=== PATIENT | male | born 1955 | race Caucasian/White ===

== ENCOUNTER 2019-04-23 08:22 | Outpatient (CLI) | payer MEDICARE ==
--- NOTE | 2019-04-23 10:31 | RAD ---
RIGHT HIP 2 VIEWS: Date: 04/23/19 HISTORY: Right hip pain. FINDINGS/IMPRESSION: Numerous surgical clips in the pelvis. Mild degenerative changes right hip joint and mild enthesophyt ic changes. No fracture or dislocation. POS: [facility]
--- NOTE | 2019-04-23 10:34 | RAD ---
AP PELVIS 1 VIEW: Date: 04/23/19 HISTORY: Right hip pain. FINDINGS/IMPRESSION: Surgical clips in the pelvis. Mild degenerative changes of both hip joints. No fracture, dislocation, or other significant acute osseous abnormality. POS: [facility]
== END 2019-04-23 08:23 | disposition home or self-care (01) ==
LOC: MADRAD 08:22
PROVIDERS: ATTEND General Practice
DX: M25.551 Pain in right hip (principal); M16.0 Bilateral primary osteoarthritis of hip; Z98.890 Other specified postprocedural states
CPT/HCPCS: 72170

== ENCOUNTER 2021-10-30 09:29 | Outpatient (CLI) | payer MEDICARE | END 2021-10-30 09:30 | disposition home or self-care (01) | LOC: MADRAD 09:29 | PROVIDERS: ATTEND Nurse Practitioner Family | DX: R22.1 Localized swelling, mass and lump, neck (principal) | CPT/HCPCS: 71046 ==

== ENCOUNTER 2022-10-25 14:25 | Outpatient (CLI) | payer MEDICARE | END 2022-10-25 14:26 | disposition home or self-care (01) | LOC: MADRAD 14:25 | PROVIDERS: ATTEND Nurse Practitioner Family | DX: L04.0 Acute lymphadenitis of face, head and neck (principal); R05.9 Cough, unspecified; J32.9 Chronic sinusitis, unspecified | CPT/HCPCS: 71046 ==

== ENCOUNTER 2022-11-03 08:40 | Outpatient (CLI) | payer MEDICARE | END 2022-11-03 08:41 | disposition home or self-care (01) | LOC: MADULT 08:40 | PROVIDERS: ATTEND Nurse Practitioner Family | DX: L04.0 Acute lymphadenitis of face, head and neck (principal) | CPT/HCPCS: 76999 ==

== ENCOUNTER 2022-11-18 15:06 | Outpatient (CLI) | payer MEDICARE | END 2022-11-18 15:07 | disposition home or self-care (01) | LOC: MADCT 15:06 | PROVIDERS: ATTEND Nurse Practitioner Family | DX: M54.2 Cervicalgia (principal); R22.1 Localized swelling, mass and lump, neck | CPT/HCPCS: 36415; 70491; 71260; 82565 ==

== ENCOUNTER 2023-05-05 14:25 | Outpatient (CLI) | payer MEDICARE | END 2023-05-05 14:26 | disposition home or self-care (01) | LOC: MADRAD 14:25 | PROVIDERS: ATTEND Nurse Practitioner Family | DX: M54.6 Pain in thoracic spine (principal); M54.2 Cervicalgia; M62.838 Other muscle spasm; M47.814 Spondylosis without myelopathy or radiculopathy, thoracic region; M47.812 Spondylosis without myelopathy or radiculopathy, cervical region | CPT/HCPCS: 72040; 72072 ==

== ENCOUNTER 2023-09-11 08:21 | Outpatient (CLI) | payer MEDICARE | END 2023-09-11 08:22 | disposition home or self-care (01) | LOC: MADRAD 08:21 | PROVIDERS: ATTEND Nurse Practitioner Family | DX: M25.559 Pain in unspecified hip (principal); M62.830 Muscle spasm of back | CPT/HCPCS: 72170 ==

== ENCOUNTER 2025-09-13 16:22 | Outpatient (CLI) | payer MEDICARE | END 2025-09-13 16:23 | disposition home or self-care (01) | LOC: MADRAD 16:22 | PROVIDERS: ATTEND Nurse Practitioner Family | DX: R07.81 Pleurodynia (principal) ==